=== PATIENT | male | born 1985 | race Caucasian/White ===

== ENCOUNTER 2021-11-30 07:35 | Outpatient (CLI) | payer OTHER, SELFPAY ==
[2021-11-30 09:43] LABS: Albumin* 4.7 g/dL (3.3-5.0)
[2021-11-30 09:44] LABS: Chloride* 100 mmol/L (96-114); Potassium* 4.4 mmol/L (3.6-5.1); Sodium* 139 mmol/L (135-149)
[2021-11-30 09:46] LABS: Cholesterol* 128 mg/dL (90-199); Creatinine* 0.7 mg/dL (0.5-1.5); Estimated Glomerular Filt Rate 123 ml/min
[2021-11-30 09:47] LABS: Alanine Aminotransferase* 28 U/L (4-50); Alkaline Phosphatase* 60 U/L (40-150); Aspartate Amino Transferase* 31 U/L (12-35); Bilirubin Total* 1.1 mg/dL (0.1-1.5); Blood Urea Nitrogen* 11 mg/dL (5-24); Calcium* 9.5 mg/dL (8.4-10.6); Carbon Dioxide* 29 mmol/L (20-32); Glucose* 109 mg/dL (60-115); Total Protein* 7.3 g/dL (6.0-8.3); Triglycerides* 63 mg/dL (40-149)
[2021-11-30 09:48] LABS: HDL Cholesterol* 40 mg/dL (>=40); LDL Cholesterol Calculated 75 mg/dL (<100)
[2021-11-30 09:56] LABS: Creatinine Urine 25.5 mg/dL
[2021-11-30 10:01] LABS: Microalbumin Creatinine Ratio 30 mg/g (0-30); Microalbumin Urine < 1 mg/dL
== END 2021-11-30 07:36 | disposition home or self-care (01) ==
PROVIDERS: PCP Family Medicine; Visit Provider Internal Medicine
DX: Z00.00 Encounter for general adult medical examination without abnormal findings (principal); E11.9 Type 2 diabetes mellitus without complications; Z13.6 Encounter for screening for cardiovascular disorders
CPT/HCPCS: 80053; 80061; 82043; 82570

== ENCOUNTER 2022-05-24 07:50 | Outpatient (CLI) | payer OTHER, SELFPAY | END 2022-05-24 07:51 | disposition home or self-care (01) | LOC: NFLDREF 05-25 06:02 | PROVIDERS: PCP Family Medicine; Referring Provider Family Medicine; Visit Provider Internal Medicine | DX: E11.9 Type 2 diabetes mellitus without complications (principal); Z13.6 Encounter for screening for cardiovascular disorders; Z12.5 Encounter for screening for malignant neoplasm of prostate | CPT/HCPCS: 80053; 80061; 82043; 82570; 84153 ==

== ENCOUNTER 2023-04-30 07:38 | Outpatient (CLI) | payer OTHER, SELFPAY | END 2023-04-30 07:39 | disposition home or self-care (01) | LOC: NFLDREF 05-01 06:23 | PROVIDERS: PCP Internal Medicine; Visit Provider Internal Medicine | DX: E11.9 Type 2 diabetes mellitus without complications (principal); Z13.220 Encounter for screening for lipoid disorders | CPT/HCPCS: 80053; 80061; G0103 ==

== ENCOUNTER 2023-12-15 07:37 | Outpatient (CLI) | payer OTHER, SELFPAY ==
--- OUTSIDE RECORDS SUMMARY | 2023-12-16 21:50 | XMS_ITS | Clinical Summary ---
Author Organization [facility] Address [place], [place] [address] Care Team Providers Care Hospice Executive Director Name Role Phone Pcp, No Primary Care Provider Unavailabl e Allergies No known active allergies Medications No known medications Social History Tobacco Use Types Packs/Day Years Used Date Smoking Tobacco: Never Assessed Sex and Gender Information Value Date Recorded Sex Assigned at Not on file Gender Identity Not on file Sexual Orientation Not on file Obstetrics History Last Filed Vital Signs Vital Sign Reading Time Taken Comments Blood Pressure 130/72 01/20/2009 8:27 PM TIRE FABRICATOR Pulse 76 01/20/2009 8:27 PM TIRE FABRICATOR Temperature 37 ??C (98.6 ??F) 01/20/2009 8:27 PM TIRE FABRICATOR Respiratory Rate 10 01/20/2009 8:27 PM TIRE FABRICATOR Oxygen Saturation 98% 12/13/2006 1:14 AM CDT Inhaled Oxygen Concentration - - Weight 117.9 kg (260 lb) 01/20/2009 8:27 PM TIRE FABRICATOR Height - - Body Mass Index - - Plan of Treatment Health Maintenance Due Date Last Done Comments Tdap 1997 Depression screening for age 12+ 1998 HIV for age 15-65 2001 BMI (ht and wt on same day) for age 18+ 01/28/2004 Hepatitis C screening for ag e 18-79 01/28/2004 Tetanus booster 2006 Lipids for age 35-44 2021 COVID-19 vaccine series (2023- season) 2023 Influenza for age 9-49 11/09/2023 Pneumococcal series for age 6-64 Aged Out No longer eligible based on patient's age to complete this topic Care Teams Hospice Executive Director Relationship Specialty Start Date End Date Pcp, No . PCP - General 01/20/09
--- OUTSIDE RECORDS SUMMARY | 2023-12-16 21:50 | XMS_ITS | Clinical Summary ---
Author Organization [facility] Address [address] [place] [id number] Care Team Providers Care Auction Clerk Name Role Phone [facility] Primary Care Provider Jessica Lipscomb RD Unavailable [phone] Medications Medication Sig Dispensed Refills Start Date End Date Status blood glucose monitoring (ACCU-CHEK FASTCLIX) lancetsIndications:Carole betes mellitus (H) Use to test blood sugar 1-2 times daily or as directed. 102 each 1 09/07/2019 Active Blood Glucose Monitoring Suppl (ACCU-CHEK GUIDE ME) w/Device KITIndications:Diabete s mellitus (H) 1 Device daily 1 kit 09/07/2019 Active ACCU-CHEK GUIDE test stripIndications:Diabe tommy mellitus (H) Use to test blood sugar 1-2 times daily or as directed. 200 each 1 09/07/2019 Active Social History Tobacco Use Types Packs/Day Years Used Date Smoking Tobacco: Never Assessed Adolescent Education Answer Date Record ed Getting School Help Needed Not on file 11/30 Sex and Gender Information Value Date Recorded Sex Assigned at Not on file Gender Identity Not on file Sexual Orientation Not on file Plan of Treatment Not on file Care Teams Auction Clerk Relationship Specialty Start Date End Date [facility] [address] [place], [place] [address] PCP - General Internal Medicine 07/13/19 Jessica Lipscomb, RD [address] [phone] Appliance Line Assembler Dietitian, Registered 07/14/19
--- OUTSIDE RECORDS SUMMARY | 2023-12-16 21:50 | XMS_ITS | Referral Summary ---
Author Organization [facility] Address [address] [place] [id number] Care Team Providers Care Crate Maker Name Role Phone [facility] Primary Care Provider Jessica Lipscomb RD Unavailable [phone] Medications Medication Sig Dispensed Refills Start Date [...] of Treatment Not on file Care Teams Crate Maker Relationship Specialty Start Date End Date [facility] [address] [place], [place] [id number] PCP - General Internal Medicine 07/13/19 Jessica Lipscomb, RD [address] [phone] Senior Manager [employer] Dietitian, Registered 07/14/19
== END 2023-12-15 07:38 | disposition home or self-care (01) ==
LOC: NFLDREF 12-16 21:48
PROVIDERS: PCP Internal Medicine; Referring Provider Internal Medicine; Visit Provider Internal Medicine
DX: E11.9 Type 2 diabetes mellitus without complications (principal); R94.5 Abnormal results of liver function studies
CPT/HCPCS: 80053

== ENCOUNTER 2024-06-04 07:35 | Outpatient (CLI) | payer BC, SELFPAY | END 2024-06-04 07:36 | disposition home or self-care (01) | LOC: NFLDREF 06-05 07:39 | PROVIDERS: PCP Internal Medicine; Referring Provider Internal Medicine; Visit Provider Internal Medicine | DX: E11.65 Type 2 diabetes mellitus with hyperglycemia (principal); E78.5 Hyperlipidemia, unspecified; Z79.84 Long term (current) use of oral hypoglycemic drugs | CPT/HCPCS: 80053; 80061; 82043; 82570 ==

== ENCOUNTER 2024-06-24 10:45 | Outpatient (CLI) | payer BC, SELFPAY | END 2024-06-24 10:46 | disposition home or self-care (01) | PROVIDERS: PCP Internal Medicine; Referring Provider Internal Medicine; Visit Provider Obstetrics & Gynecology | DX: Z31.441 Encounter for testing of male partner of patient with recurrent pregnancy loss (principal) | CPT/HCPCS: 88262 ==

== ENCOUNTER 2024-07-01 08:38 | Outpatient (CLI) | payer BC, SELFPAY | END 2024-07-01 08:39 | disposition home or self-care (01) | LOC: NFLDREF 07-06 21:44 | PROVIDERS: PCP Internal Medicine; Referring Provider Internal Medicine; Visit Provider Obstetrics & Gynecology | DX: N46.9 Male infertility, unspecified (principal) | CPT/HCPCS: 89322 ==